=== PATIENT | male | born 1975 | race Two or more races ===

== ENCOUNTER 2019-06-29 18:04 | Emergency (ER) | payer MEDICARE ==
[~2019-06-29] VITALS: Ht 165.1 cm; Wt 72.7 kg
[2019-06-29 18:53] VITALS: BP 160/91
[2019-06-29] MEDS ORDERED: IBUP-1027 PO (21:59)
[2019-06-29] MEDS ORDERED: ORPH100T PO (22:00)
--- NOTE | 2019-06-29 22:00 | PHYS DOC ---
Past Medical History Past Medical History: No Pertinent History (ROMY LIRA APRN) Past Surgical History: No Surgical History (ROMY LIRA APRN) Alcohol Use: None (ROMY LIRA APRN) Attending Signature I have participated in the care of this patient and I have reviewed and agree with all pertinent clinical information above including history, exam, and recommendations. (TEQUILA MONTIEL MD) Adult General Chief Complaint Chief Complaint: BACK INJURY [facility] HPI Patient is a 44 year old male who presents with lower left sided back pain that has been ongoing for 3 weeks. The patient states he has been trying Ibuprofen which has not been working. He states that he was lifting heavy boxes at work and that it has hurt since that time. He rates his pain as 5/10 in severity. Denies additional symptoms. Complete ROS were reviewed and found to be within normal limits, except as documented in the HPI (ROMY LIRA APRN) Allergies Allergies Allergies Coded Allergies Type Severity Reaction Last Updated Verified No Known Drug Allergies 06/29/19 No (TEQUILA MONTIEL MD) Physical Exam Physical Exam Constitutional: Well developed, well nourished, no acute distress, non-toxic appearance. [] HENT: Normocephalic, atraumatic, bilateral external ears normal, oropharynx moist, no oral exudates, nose normal. [] Eyes: PERRLA, EOMI, conjunctiva normal, no discharge. [] Back: left lower back pain with trigger points on palpation. Neurologic: Alert and oriented X 3, normal motor function, normal sensory function, no focal deficits noted. [] Psychologic: Affect normal, judgement normal, mood normal. [] (ROMY LIRA APRN) Current Patient Data Vital Signs Vital Signs Date Time Temp Pulse Resp B/P (MAP) Pulse Ox O2 Delivery O2 Flow Rate FiO2 06/29/19 18:53 98.5 71 16 160/91 (114) 96 Room Air 98.5 (TEQUILA MONTIEL MD) EKG EKG [] (ROMY LIRA APRN) Radiology/Procedures Radiology/Procedures [] (ROMY LIRA APRN) Course & Med Decision Making Course & Med Decision Making Pertinent Labs and Imaging studies reviewed. (See chart for details) Will prescribe Norflex and Ibuprofen. Discussed with patient about using heat, and foam roller to help pain. (ROMY LIRA APRN) Dragon Disclaimer Dragon Disclaimer This electronic medical record was generated, in whole or in part, using a voice recognition dictation system. (ROMY LIRA APRN) Departure Departure Impression: Primary Impression: Musculoskeletal back pain Disposition: HOME, SELF-CARE Condition: STABLE Referrals: NO PCP (PCP) Patient Instructions: Musculoskeletal Pain Additional Instructions: Thank you for visiting [facility]. We appreciate you trusting us with your care. If any additional problems come up don't hesitate to return to visit us. Please follow up with your primary care provider so they can plan additional care if needed and know about the problem that you had. If symptoms worsen come back to the Emergency Department. Any concerning symptoms that start such as chest pain, shortness of air, weakness or numbness on one side of the body, running high fevers or any other concerning symptoms return to the ER. Please fill your medications at any pharmacy and follow the prescription instructions. Scripts Orphenadrine Citrate (ORPHENADRINE CITRATE) 100 Mg Tablet.er 100 MG PO BID PRN for MUSCLE PAIN for 5 Days, #10 TAB.SR Prov: ROMY LIRA APRN 06/29/19 Ibuprofen (IBUPROFEN) 400 Mg Tablet 400 MG PO PRN Q6HRS PRN for INFLAMMATION for 5 Days, #20 TAB Prov: ROMY LIRA APRN 06/29/19 ROMY LIRA APRN Jun 29, 2019 22:00 TEQUILA MONTIEL MD Jun 30, 2019 03:47
== END 2019-06-29 22:06 | disposition home or self-care (01) ==
LOC: ER 18:04
DX: M54.5 Low back pain (principal)
CPT/HCPCS: 99283